=== PATIENT | male | born 1955 | race Caucasian/White ===

== ENCOUNTER 2023-03-11 04:13 | Emergency (ER) | payer MEDICARE, OTHER ==
[~2023-03-11] VITALS: Ht 170.2 cm; Wt 68.9 kg
[2023-03-11] MEDS ORDERED: HYDROMORPHONE 1 MG/1 ML DISP.SYRIN IV ONE (04:30)
[2023-03-11] MEDS ORDERED: ONDANSETRON 4 MG/2 ML VIAL IV ONE (04:30)
[2023-03-11] MEDS ORDERED: IV NORMAL SALINE 1000 ML BAG IV ONE (04:30)
[2023-03-11] MEDS ORDERED: HYDROMORPHONE 1 MG/1 ML DISP.SYRIN ONE (04:31)
[2023-03-11] MEDS ORDERED: ONDANSETRON 4 MG/2 ML VIAL ONE (04:31)
[2023-03-11 04:35] LABS: BASOPHILS % (AUTO) 0.2 % (0.0-2.0); EOSINOPHILS # (AUTO) 0.6 K/uL (0.0-0.7); EOSINOPHILS % (AUTO) 3.1 % (0.0-7.0); HEMOGLOBIN 8.5 g/dL (12.5-16.3); LYMPHOCYTES # (AUTO) 3.2 K/uL (0.8-4.8); LYMPHOCYTES % (AUTO) 15.5 % (20.5-51.5); MEAN CORPUSCULAR HEMOGLOBIN 20.4 uug (23.8-33.4); MEAN CORPUSCULAR HGB CONC 31 g/dL (32.5-36.3); MEAN CORPUSCULAR VOLUME 66.9 fL (73.0-96.2); MONOCYTES # (AUTO) 1.4 K/uL (0.1-1.30); NEUTROPHILS # (AUTO) 15.3 K/uL (1.8-8.9); NEUTROPHILS % (AUTO) 74.2 % (38.5-71.5); PLATELET COUNT (AUTO) 193 K/uL (152-348); RED BLOOD CELL COUNT(AUTO) 4.19 MIL/uL (4.06-5.63); RED CELL DISTRIBUTION WIDTH 16.1 % (12.1-16.2); WHITE BLOOD COUNT (AUTO) 20.6 K/uL (3.6-10.2)
[2023-03-11 04:42] LABS: DIFFERENTIAL COMMENT 1
[2023-03-11 04:43] LABS: CALCIUM 9.6 mg/dL (8.5-10.1); CREATININE 2.7 mg/dL (0.6-1.3)
[2023-03-11 04:57] LABS: ALBUMIN 3.4 g/dL (3.4-5.0); BILIRUBIN,DIRECT 0.1 mg/dL (0.0-0.2); BILIRUBIN,TOTAL 0.4 mg/dL (0.2-1.0)
[2023-03-11] MEDS ORDERED: TACR1CAP2 PO ×3 (04:59→10:50)
[2023-03-11] MEDS ORDERED: MYCO250C PO ×2 (04:59→10:50)
[2023-03-11 05:25] LABS: ANISOCYTOSIS 1+; HYPOCHROMASIA 2+; LYMPHOCYTES % (MANUAL) 21 % (20-40); MONOCYTES % (MANUAL) 7 % (2-10); NEUTROPHILS % (MANUAL) 72 % (42-75); PLATELET ESTIMATE ADEQUATE
[2023-03-11 07:32] LABS: *BILIRUBIN,URIN NEGATIVE (NEGATIVE); *BLOOD, URINE 2+ (NEGATIVE); *CLARITY,URINE CLEAR (CLEAR); *COLOR,URINE YELLOW (YELLOW); *KETONES,URINE NEGATIVE (NEGATIVE); *PROTEIN,URINE TRACE (NEGATIVE); *UROBILINOGEN,URINE 0.2 E.U./dl (NORMAL); LEUKOCYTE ESTERASE ,URINE 1+ (NEGATIVE); NITRITE, URINE NEGATIVE (NEGATIVE); PH,URINE 5.5 (5.0-8.0); UGLUCOSE NEGATIVE (NEGATIVE)
[2023-03-11 07:51] LABS: BACTERIA,URINE MANY /HPF (NONE SEEN); RBC,URINE 50-80 /HPF (0-3); WBC,URINE 50-80 /HPF (0-3)
[2023-03-11] MEDS ORDERED: PIPERACILLIN SODIUM/TAZOBACTAM 3.375 G in IV DEXTROSE 5% 50 ML IV ONE (08:00)
[2023-03-11] MEDS ORDERED: VANCOMYCIN IV 1,000 MG in IV DEXTROSE 5% 250 ML IV ONE (08:00)
[2023-03-11] MEDS ORDERED: VANCOMYCIN IV 200 ML ONE (08:12)
[2023-03-11] MEDS ORDERED: PIPERACILLIN/TAZOBACTAM/D5W 50 ML IV ONE (08:12)
[2023-03-11] MEDS ORDERED: MAGNESIUM HYDROXIDE 30 ML LIQUID UDC PO PRN (10:15)
[2023-03-11] MEDS ORDERED: ACETAMINOPHEN 325 MG TABLET PO PRN (10:15)
[2023-03-11] MEDS ORDERED: MORPHINE SULFATE 2 MG/1 ML DISP.SYRIN IV PRN (10:15)
[2023-03-11] MEDS ORDERED: IV NS 1000 ML 1,000 ML IV SCH (10:15)
[2023-03-11] MEDS ORDERED: REMEDY ESSENTIAL ZINC PASTE 113 GM TP PRN (10:15)
[2023-03-11] MEDS ORDERED: ONDANSETRON 4 MG/2 ML VIAL IV PRN (10:15)
[2023-03-11] MEDS ORDERED: FURO40TA5 PO (10:50)
[2023-03-11] MEDS ORDERED: MULT-596 PO (10:50)
[2023-03-11] MEDS ORDERED: ASCO-495 PO (10:50)
[2023-03-11] MEDS ORDERED: ASPI-869 PO (10:50)
[2023-03-11] MEDS ORDERED: TEST200V3 IM (10:50)
[2023-03-11] MEDS ORDERED: [UNRECOGNIZED DRUG - OTHER] PO (10:50)
[2023-03-11] MEDS ORDERED: INSU100V11 (10:50)
[2023-03-11] MEDS ORDERED: DULA1.5P SQ (10:50)
[2023-03-11] MEDS ORDERED: CALC-167 PO (10:50)
[2023-03-11] MEDS ORDERED: IRON1CAP39 PO (10:50)
[2023-03-11] MEDS ORDERED: APIX5TAB PO (10:50)
[2023-03-11] MEDS ORDERED: DOCU-141 PO (10:50)
[2023-03-11] MEDS ORDERED: ALLO100T PO (10:50)
[2023-03-11] MEDS ORDERED: INSU3INS6 SQ (10:50)
[2023-03-11] MEDS ORDERED: ROSU10TA2 PO (10:50)
[2023-03-11 11:37] LABS: IRON, SERUM 24 ug/dL (50-175)
[2023-03-11] MEDS ORDERED: INSULIN REGULAR, HUMAN 300 UNIT/3 ML VIAL SQ PRN (11:45)
[2023-03-11] MEDS ORDERED: DEXTROSE 50% 50 ML DISP.SYRIN IV PRN (11:45)
[2023-03-11] MEDS ORDERED: BLOOD SUGAR DIAGNOSTIC 1 EACH STRIP VI SCH (12:00)
[2023-03-11] MEDS ORDERED: IV D5/ 0.9% NACL 1,000 ML IV SCH (12:00)
[2023-03-11 12:10] VITALS: O2SAT 96
[2023-03-11] MEDS ORDERED: INSULIN REGULAR, HUMAN 300 UNIT/3 ML VIAL ONE (12:10)
[2023-03-11] MEDS ORDERED: [UNRECOGNIZED DRUG - OTHER] PO SCH (13:00)
[2023-03-11] MEDS ORDERED: PIPERACILLIN SODIUM/TAZOBACTAM 3.375 G in IV DEXTROSE 5% 50 ML IV SCH (14:00)
[2023-03-11] MEDS ORDERED: MYCOPHENOLATE MOFETIL 250 MG CAPSULE PO SCH (17:00)
[2023-03-11] MEDS ORDERED: CALCIUM CARB/VITAMIN D 500MG-200UNITS TABLET PO SCH (17:00)
[2023-03-11] MEDS ORDERED: TACROLIMUS PO SCH (18:00)
[2023-03-11] MEDS ORDERED: Medication Not On Formulary EA (Rosuvastatin Calcium (Crestor) 10 MG) PO SCH (21:00)
[2023-03-12] MEDS ORDERED: [UNRECOGNIZED DRUG - MIXTURE] PO SCH (09:00)
[2023-03-12] MEDS ORDERED: FUROSEMIDE 40 MG TABLET PO SCH (09:00)
[2023-03-12] MEDS ORDERED: ASCORBIC ACID 250 MG PO SCH (09:00)
[2023-03-12] MEDS ORDERED: ASPIRIN EC 325 MG TABLET.DR PO SCH (09:00)
[2023-03-12] MEDS ORDERED: TACROLIMUS ANHYDROUS PO SCH (09:00)
== END 2023-03-11 14:01 | disposition left against medical advice (07) ==
LOC: EDBD 04:17 → ER 04:17
DX: R10.84 Generalized abdominal pain (principal); K59.00 Constipation, unspecified; R07.89 Other chest pain; Z79.899 Other long term (current) drug therapy
CPT/HCPCS: 99285; 74176; 96361; 96365; 96366; 76770; 71045; 96375; 96367; 80076; 80048; 81001; 82962; 83036; 83550; 83690; 85025; 84145; 87040 ×2; 36415; 83605; 87086; 96372; 85007; J2405; J2543; J3370; J1170; J1815; J7040; 70030-TC; A4606; A4663; J7042; J7517